=== PATIENT | female | born 1945 | race Caucasian/White ===

== ENCOUNTER → 2023-10-10 08:16 | Outpatient (REF) | payer MEDICARE, SELFPAY ==
[2023-10-10 09:33] LABS: ALT (SGPT) 28 U/L (0-35); AST (SGOT) 29 U/L (14-36); Albumin 3.9 g/dl (3.5-5.0); Alkaline Phosphatase 63 U/L (38-126); Blood Urea Nitrogen 18 mg/dl (7-17); Calcium 9.1 mg/dl (8.4-10.2); Carbon Dioxide 30 mmol/L (22-30); Chloride 107 mmol/L (98-107); Glucose 87 mg/dl (70-99); Potassium 4.1 mmol/L (3.5-5.1); Sodium 139 mmol/L (135-145); Total Bilirubin 1.5 mg/dl (0.2-1.3); Total Protein 6.4 g/dl (6.3-8.2); eGFR > 60.00
== END ==
LOC: REG 08:16
PROVIDERS: ATTENDING PHYSICIAN Internal Medicine Rheumatology; FAMILY PHYSICIAN Family Medicine
DX: M81.0 Age-related osteoporosis without current pathological fracture (principal)
CPT/HCPCS: 36415; 80053

== ENCOUNTER → 2023-11-01 08:57 | Outpatient (REF) | payer MEDICARE, SELFPAY ==
[2023-11-01 10:45] LABS: ALT (SGPT) 28 U/L (0-35); AST (SGOT) 28 U/L (14-36); Alkaline Phosphatase 59 U/L (38-126); Blood Urea Nitrogen 20 mg/dl (7-17); Calcium 9.7 mg/dl (8.4-10.2); Carbon Dioxide 30 mmol/L (22-30); Chloride 106 mmol/L (98-107); Glucose 105 mg/dl (70-99); Potassium 3.9 mmol/L (3.5-5.1); Sodium 139 mmol/L (135-145); Total Bilirubin 1.2 mg/dl (0.2-1.3); Total Protein 6.7 g/dl (6.3-8.2); eGFR > 60.00
[2023-11-01 12:40] LABS: NT-proBNP 276 pg/ml
== END ==
LOC: REG 08:57
PROVIDERS: ATTENDING PHYSICIAN Internal Medicine Cardiovascular Disease; FAMILY PHYSICIAN Family Medicine
DX: I10 Essential (primary) hypertension (principal); I50.32 Chronic diastolic (congestive) heart failure
CPT/HCPCS: 36415; 80053; 83880

== ENCOUNTER 2024-01-13 20:44 | Inpatient (IN) | payer MEDICARE, SELFPAY ==
[2024-01-13] VITALS (9 sets, daily range): BP systolic 102–138; BP diastolic 54–88; BMI 32.0; BMI 29.2
[2024-01-13 17:37] LABS: % Basophils 0.1 % (0-2); % Immature Granulocytes 5.5 % (0-0.5); % Monocytes 9.7 % (1.7-9.3); % Neutrophils 79.7 % (42.2-75.2); Absolute Immature Granulocytes 1.1 10^3/uL (0-0.05); Absolute Neutrophils 16.3 10^3/uL (1.4-6.5); Hematocrit 23.3 % (37.0-47.0); Hemoglobin 7.6 g/dL (12.0-16.0); Mean Corp Hgb Conc. 32.6 g/dL (33.0-37.0); Mean Corpuscular Hgb 30.5 pg (27.0-31.0); Mean Corpuscular Volume 93.6 fL (81.0-99.0); Mean Platelet Volume 10.4 fL (7.4-10.4); Nucleated Red Blood Cells % 0.8 %; Platelet Count 308 10^3/uL (130-400); Red Blood Cell Count 2.49 10^6/uL (4.20-5.40); Red Cell Dist. Width 16.2 % (11.5-14.5); White Blood Cell Count 20.5 10^3/uL (4.8-10.8)
[2024-01-13 17:53] LABS: ALT (SGPT) 28 U/L (0-35); AST (SGOT) 25 U/L (14-36); Albumin 2.9 g/dl (3.5-5.0); Alkaline Phosphatase 53 U/L (38-126); Blood Urea Nitrogen 33 mg/dl (7-17); Calcium 8.8 mg/dl (8.4-10.2); Carbon Dioxide 24 mmol/L (22-30); Chloride 105 mmol/L (98-107); Glucose 146 mg/dl (70-99); Potassium 4.5 mmol/L (3.5-5.1); Sodium 135 mmol/L (135-145); Total Bilirubin 1.8 mg/dl (0.2-1.3); Total Protein 5.3 g/dl (6.3-8.2); eGFR 57.66
--- NOTE | 2024-01-13 18:27 | ED.GENMED ---
History of Present Illness
General
Chief Complaint: Abnormal Lab Value
Source: patient
Exam Limitations: none
Time Seen by Provider: 01/13/24 17:53
Travel History
Have you had any contact with someone who has COVID-19?: No
Do you have any symptoms of coronavirus? Fever > 100 degrees, chills, cough, shortness of breath, sore throat, loss of taste or smell, muscle aches, or headache?: No
History of Present Illness
History of Present Illness:
This is a 78 year old female that comes in with c/o abnormal labs. States that she is at [facility] and the nurse told her her Hgb is low. State that she fell on Saturday after . State that she was a trauma at [place] and was then
transferred to the eye institute [facility] for eye surgery. 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 States that she was discharged back to [facility] 2 days ago. States that today she is feeling good except for the
hematoma in the left thigh. Denies any fever, chills, chest pain, SOB, abd pain, nausea, vomiting, diarrhea, headache, dizziness, urinary burning.
Past History
Past History
ED Past Medical History: CAD, Cancer (Skin CA), GERD, HTN, Hypercholesterolemia and Other (Multiple fractures of the face, Chronic Bronchitis, PNA, Sleep apnea, DVT, factor VIII clotting disorder)
ED Past Surgical History: Orthopedic (Right Total knee replacement), Tonsilectomy and Other (IVC filter, gastric bypass, lumpectomy, skin surgery)
Social History
Tobacco: Non-smoker
Alcohol: None (Maybe once a year)
Drug: None
Personal:
Living: assisted living ([facility])
Family History
Family History: Hypertension
Review of Systems
Review of Systems
All Other Systems: ROS reviewed and negative except as documented in HPI and ROS
Constitutional: Reports no symptoms; Denies fever or chills
EENT: Reports no symptoms
Respiratory: Reports no symptoms; Denies cough or trouble breathing
Cardiac: Reports no symptoms; Denies chest pain
ABD/GI: Reports no symptoms; Denies abdominal pain, nausea, vomiting or diarrhea
: Reports no symptoms; Denies dysuria, frequency or urgency
Musculoskeletal: Reports other (Pain left thigh due to Hematoma)
Skin: Reports no symptoms
Neurological: Reports no symptoms; Denies dizzy or headache
Psychiatric: Reports no symptoms
Phy Exam
General Physical Exam
General Presentation: no apparent distress
General age: appears stated age
General Skin: warm and dry
General Habitus: elderly
General Mental: alert
General Hydration: appears well hydrated
ENT Exam
ENT Exam: TM's normal, pharynx normal and neck supple
Eye Exam
Eye Exam: other (Patch maintained over left eye. )
Cardiovascular Exam
Cardiovascular Exam: regular rate/rhythm and normal peripheral pulses
Pulmonary Exam
Pulmonary Exam: lungs clear, no respiratory distress, no rales, chest non tender, no crackles, no rhonchi, no wheezing and no cough
Gastrointestinal Exam
Gastrointestinal Exam: normal bowel sounds, non tender, soft, no organomegaly, no pulsatile mass, non distended and other (Rectal exam stool brown hem negative. )
Musculoskeletal Exam
Musculoskeletal Exam: edema (left leg and slightly right lower nonpitting) and other (contusion of the left side of the face, and left thigh with large hematoma on the left thigh Contusion down to left posterior knee, Limited ROM of the left leg)
Skin Exam
Skin Exam: normal color, warm/dry, no petechia and other (contusion left sided of face and left thigh)
Psychiatric Exam
Psychiatric Exam: normal mood/affect
Course
Orders/Labs/Results
Orders:
Orders
01/13/24 Breakfast
Cholesterol Lowering
At Your Request: Full Participation
Cholesterol Lowering: Sodium, 2 Gram
01/13/24 17:22
CBC/With Diff [Complete Blood Count/With Diff] Urgent
Comprehensive Metabolic Panel Urgent
01/13/24 18:26
* Blood Bank Products Urgent
Blood Bank Products: *Packed RBC Leuko(PRBC's)
Quantity: 2
Transfuse Today: Yes
Reason: Anemia
Urinalysis Reflex To Culture Urgent
01/13/24 18:27
IV Insert/Care/Rem.- Treatment PRN
01/13/24 18:44
Type+Screen Urgent
01/13/24 20:01
Admit/Transfer Patient As Directed
Co-Sign Provider:
Level of Care: Inpatient admission
Assign to:: Telemetry
Physician / Group: ofelia ibarra
Diagnosis: acute anemia
Reason for Telemetry: Other
Other Reason for Telemetry: anemia
Date to Stop Telemetry: 01/15/24
Time to Stop Telemetry: 11:00
Reason for Hospitalization: acute anemia
Expected length of stay greater than two midnights?: Yes
ELOS- Estimated Length of Stay in days: 3
I certify the patient meets the requirements for IP care: Yes
PT/INR [Prothrombin Time] Stat
01/13/24 20:03
Code Status As Directed
Resuscitation Status: Full Code
01/13/24 20:46
Acetaminophen [Tylenol] 650 mg PO Q4HPRN PRN
Bisacodyl [Dulcolax] 10 mg RECTAL [id number] PRN
Docusate W/Senna [Senokot-S] 1 tablet PO BIDPRN PRN
Polyethylene Glycol Powder [Miralax] 17 grams PO DAILYPRN PRN
01/13/24 20:46
Activity As Directed
Activity Level: As Tolerated
Vital Signs As Directed
Frequency: Per unit guidelines
01/13/24 21:00
Dexamethasone [Decadron] 2 mg PO BID
Enoxaparin Sodium [Lovenox] 60 mg SC Q12H
Prednisolone Acetate [Pred Forte 1% Eye Drops] See Dose Instructions BOTH EYES 6/D
01/13/24 22:00
Chlorhexidine Oral Rinse 0.12% [Peridex 0.12% Oral Rinse] 15 ml PO Q12H
Rosuvastatin Calcium [Crestor] 5 mg PO HS
Sildenafil Citrate [Revatio] 20 mg PO Q12H
Warfarin [Coumadin] 2 mg PO HS
Warfarin [Coumadin] 7.5 mg PO HS
moxifloxacin See Dose Instructions LEFT EYE QID
01/14/24 06:00
Basic Metabolic Panel IN AM
Cardiovascular Evaluation IN AM
Complete Blood Count/No Diff IN AM
Prothrombin Time IN AM
01/14/24 08:00
Atropine Sulfate [Atropine Sulfate 1% Drops] See Dose Instructions LEFT EYE BID
Famotidine [Pepcid] 20 mg PO DAILY
Lidocaine [Lidocaine 4% Patch] 1 patch TOPICAL DAILY
Pantoprazole [Protonix] 20 mg PO DAILY
Polyethylene Glycol Powder [Miralax] 17 grams PO DAILY
Sennosides [Senokot] 17.2 mg PO BID
Timolol Maleate/Dorzolam HCl [Cosopt Eye Drops] See Dose Instructions LEFT EYE BID
01/15/24 06:00
Basic Metabolic Panel IN AM
Complete Blood Count/No Diff IN AM
Prothrombin Time IN AM
01/15/24 11:00
DC Protocol for Telemetry ONCE
01/16/24 06:00
Basic Metabolic Panel IN AM
Complete Blood Count/No Diff IN AM
Prothrombin Time IN AM
01/17/24 06:00
Basic Metabolic Panel IN AM
Complete Blood Count/No Diff IN AM
Prothrombin Time IN AM
01/18/24 06:00
Basic Metabolic Panel IN AM
Complete Blood Count/No Diff IN AM
Prothrombin Time IN AM
Abnormal Lab Results
01/13/24 01/13/24 01/13/24
17:22 18:44 20:01
WBC 20.5 H 10^3/uL
(4.8-10.8)
RBC 2.49 L 10^6/uL
(4.20-5.40)
Hgb 7.6 L g/dL
(12.0-16.0)
Hct 23.3 L %
(37.0-47.0)
MCHC 32.6 L g/dL
(33.0-37.0)
RDW 16.2 H %
(11.5-14.5)
Abs Immat Gran (auto) 1.1 H 10^3/uL
(0-0.05)
Absolute Neuts (auto) 16.3 H 10^3/uL
(1.4-6.5)
Absolute Lymphs (auto) 1.0 L 10^3/uL
(1.2-3.4)
Absolute Monos (auto) 2.0 H 10^3/uL
(0.1-0.6)
Immature Gran % 5.5 H %
(0-0.5)
Neutrophils % 79.7 H %
(42.2-75.2)
Lymphocytes % 5.0 L %
(20.5-51.1)
Monocytes % 9.7 H %
(1.7-9.3)
PT 18.1 H Sec
(11.4-14.6)
BUN 33 H mg/dl
(7-17)
Glucose 146 H mg/dl
(70-99)
Total Bilirubin 1.8 H mg/dl
(0.2-1.3)
Total Protein 5.3 L g/dl
(6.3-8.2)
Albumin 2.9 L g/dl
(3.5-5.0)
Crossmatch IS Only See Detail
01/13/24 17:22
01/13/24 17:22
Leukocytosis, H/H low. Anemia, Dehydration. Glucose nonfasting. Total saniya elevation. total protein low. Albumin low.
Vital Signs
Initial and Last Documented VS:
Initial Vital Signs
Temp
97.2 F
01/13/24 17:06
Last Documented Vital Signs
Temp Pulse Resp BP Pulse Ox
97.9 F 61 18 128/57 99
01/14/24 00:34 01/14/24 00:34 01/14/24 00:34 01/14/24 00:34 01/13/24 22:31
MDM/Problems Addressed
Differential Diagnosis Includes:
Anemia. bleeding into hematoma
MDM/Problems Addressed:
This is a 78 year old female that comes in with c/o abnormal labs. States that she was a trauma the Saturday after . Patient has a large hematoma to the left thigh and today she was told that her Hgb is low.
will check labs, Urine and give 2 units of PRBC's and admit.
Hospitalist notified.
Chronic conditions affecting care:
factor VIII clotting disorder
Acute Exacerbation and/or Progression of Chronic Illness:
factor VIII clotting disorder
*Pulse Oximetry
Patient hypoxic: no
*EKG
Interpreted by ED Provider?: NA
Rate: EKG- N/A
*Emergency Veterinary Technician Interpretation
Rate: normal
Heart Rate: 65
Rhythm: sinus
*Critical Care Note
Total Time (30-74mins, 75-104mins- exclusive of procedures): Not Applicable
ED Attending Note
-
Portions of this chart may have been created with voice recognition software.� Occasional wrong word or��sound alike� substitutions may have occurred due to the inherent limitations of voice recognition software.
Discharge Plan
Departure
Patient Disposition: Admit
Date of Disposition: 01/13/24
Time of Disposition: 19:23
Admit to: Telemetry
Presentation/result/management discussed w/ accepting MD/DO: Hospitalist
Patient with high blood pressure during this ER visit?: No
Condition: Good
Covid-19: Not Applicable
Discharge Problem:
Abnormal laboratory test result, Hemoglobin low
Interventions
Interventions:
*Risk Screen - Suicide Last Done: 01/13/24 17:51
*General Assessment Last Done: 01/13/24 17:51
*Neglect/Abuse Screening Last Done: 01/13/24 17:51
ED- Fall Risk Assessment Last Done: 01/13/24 17:51
*ED COVID-19 Vaccine History Last Done: 01/13/24 17:51
*Nursing Disposition Last Done: 01/13/24 20:40
Discharge Date and Time
Discharge Date/Time: 01/13/24 20:40
--- NOTE | 2024-01-13 19:33 | HPS.HSE ---
Addendum entered and electronically signed by ZAHRA Sanchez 01/13/24 20:32:
left thigh hematoma
-ctm
Addendum entered and electronically signed by Levar Molina MD 01/13/24 20:31:
This note serves as an addendum to the H&P by track liner operator KACY Andree VOGT
8F HX Factor VIII clotting disorder, s/p fall on 12/31 complicated with Lt orbital facial Fx, Lt thigh large hematoma.
She was [facility] for low Hgb 6.7 for evaluation. Baseline Hgb is 13 (01/18/23).
S/P orbit reconstructive surgery ay [facility] on 01/10/24. Received 1 PRBC at [facility] for anemia.
Denied hematemesis and melena. NEG HoB stool.
No prior HX ACdz. Nl renal function.
HX Warfarin for Factor VIII clotting disorder prior to facial trauma.
Currently on bridging LMWH.
Known to [facility] war[facility]in [facility]. last dose of Lovenox was this AM.
Associate steroid induced leucocytosis
- Hemodynamically stable
- ER ordered 2 PRBCs - f/u post Tx Hgb
- cont Lovenox bridge and warfarin:- daily INR an Hgb
- cont Decadron PO - trend WCC
- agree with [facility] consult per family request
Original Note:
Family Physician
-
Family Physician: Jaren Marcum
Chief Complaint
-
low blood count
History of Present Illness
78 year old female with past medical history for coronary artery disease, skin cancer, GERD, hypertension, hyperlipidemia DVT, factor VIII clotting presented to us with low hemoglobin. State that she fell on Saturday after . State that
she was a trauma at [place] and was then transferred to the eye institute [facility] for eye surgery. Patient fractured orbital part of her left eye as well as some facial fractures she was also noted to have left Thigh lower extremities
hematoma. Patient underwent repair of all with as well as placed plates and screws for facial fractures. She has stable left thigh hematoma since then. Patient had left lower extremities ultrasound and x-ray with no acute findings at [facility].
she denied VELASCO,dizzy or syncopal episode. denied fever, chills, chest pain, sob. denied abdominal pain,n,v,d. denied dysuria or hematuria. Patient was once transfused with a unit of blood at [facility] for anemia.
On arrival noted to have a hemoglobin of 7.6. Transfusing with 2 units of blood. Admitting for further management
Medical History
Past Medical History
Past Medical History: Reports Other
Additional Past Medical History:
Hyperlipidemia
Pulmonary hypertension
factor VIII deficiency
Frequent PVCs
Hypertension
Diastolic CHF
Degenerative disc disease
Varicose veins of bilateral lower extremities
Chronic laryngitis
DVT/PE
Asthma
GERD
Hiatal hernia
Orthostatic hypotension
Past Surgical History: Reports Other
Additional Past Surgical History:
Right knee replacement
IVC filter
Tonsillectomy
Vertical sleeve gastrectomy
Chin melanoma excision
Dental implant
Social History
Tobacco: Non-smoker
Alcohol: None
Drug: None
Living: Assisted Living
Family History
Family History: Not pertinent
Allergies / Home Medications
Allergies reflects when Allergies were last updated in [facility].
Home Medications with original date entered in [facility]
Allergy/Medication List:
Allergies
Allergy/AdvReac Type Severity Reaction Status Date / Time
adhesive Allergy blistering Verified 01/13/24 17:06
of skin
nickel Allergy welts as a Verified 01/13/24 17:06
child when
wearing
jewelry
with nickel
sulfite Allergy wheezing,co Verified 01/13/24 17:06
ugh
Home Medications
Prolia 1.7 ml SC .ANNUAL 01/13/24
acetaminophen 325 mg tablet (Tylenol) 650 mg PO Q4H PRN mild pain/fever>100 01/13/24
atropine 1 % eye drops 1 drp LEFT EYE BID 01/13/24
bisacodyl 10 mg rectal suppository (Dulcolax (bisacodyl)) 10 mg CO DAILY PRN if MOM ineffective on day 5 01/13/24
chlorhexidine gluconate 0.12 % mouthwash (Peridex) 15 ml PO Q12H 01/13/24
cholecalciferol (vitamin D3) 25 mcg (1,000 unit) tablet 25 mcg PO DAILY 01/13/24
cyanocobalamin (vitamin B-12) 500 mcg tablet 500 mcg PO DAILY 01/13/24
dexamethasone 2 mg tablet 2 mg PO .TAPER 01/13/24
dorzolamide-timolol (PF) 2 %-0.5 % eye drops in a dropperette (Cosopt (PF)) 1 drp LEFT EYE BID 01/13/24
enoxaparin 60 mg/0.6 mL subcutaneous syringe (Lovenox) 60 mg SC Q12H 01/13/24
famotidine 20 mg tablet (Pepcid) 20 mg PO DAILY 01/13/24
lansoprazole 15 mg capsule,delayed release (Prevacid 24Hr) 15 mg PO DAILY 01/13/24
lidocaine 4 % topical patch 1 patch topical DAILY lower back 01/13/24
magnesium chloride 250 mg PO DAILY 01/13/24
magnesium hydroxide 400 mg/5 mL oral suspension (Milk of Magnesia) 30 ml PO DAILY PRN if no BM on day 4 01/13/24
moxifloxacin 0.5 % eye drops 1 drp LEFT EYE QID 01/13/24
polyethylene glycol 3350 17 gram oral powder packet (Miralax) 17 g PO DAILY 01/13/24
prednisolone acetate 1 % eye drops,suspension (Pred Forte) 1 drp BOTH EYES 6XD 01/13/24
rosuvastatin 5 mg tablet 5 mg PO HS 01/13/24
sennosides 8.6 mg tablet (Senna Lax) 17.2 mg PO BID 01/13/24
sildenafil (pulm.hypertension) 20 mg tablet 20 mg PO Q12H 01/13/24
sodium phosphates 19 gram-7 gram/118 mL enema (Fleet Enema) 118 ml CO DAILYPRN PRN if dulcolax supp ineffective on day 6 01/13/24
warfarin 2 mg tablet 2 mg PO HS 01/13/24
warfarin 7.5 mg tablet 7.5 mg PO HS 01/13/24
Review of Systems
-
Constitutional: Reports No Symptoms
EENT: Reports Other (Left eye covered and bruises noted on left side of face)
Respiratory: Reports No Symptoms
Cardiac: Reports No Symptoms
Abdomen/GI: Reports No Symptoms
: Reports No Symptoms
Musculoskeletal: Reports No Symptoms
Skin: Reports Other (Left thigh hematoma)
Neurological: Reports No Symptoms
Endocrine: Reports No Symptoms
Hematologic/Lymphatic: Reports No Symptoms
Psych: Reports No Symptoms
Physical Exam
Vital Signs
Vital Signs
Temp Pulse Resp BP Pulse Ox
98.2 F 69 22 113/55 98
01/13/24 19:19 01/13/24 19:15 01/13/24 19:15 01/13/24 19:00 01/13/24 19:19
Physical Exam
General: Well Developed, Well Nourished and No Apparent Distress
HEENT: NormoCephalic, Moist mucous membranes, Atraumatic and Other (Left facial bruises, left left COVered)
Respiratory: Clear
Cardiac: S1/S2 and Regular Rhythm; No Murmur or Rub
GI: Soft, Non Tender, Non Distended and Normal Bowel Sounds; No Organomegaly
Rectal: Deferred by Provider
Musculoskeletal: No Clubbing, No Cyanosis and No Edema
Skin: Rash and Other (Left thigh hematoma)
Neuro: AO x 3 and Nonfocal/grossly intact
Psych: Calm
Laboratory Results
-
06/10/24 17:22
01/13/24 17:22
Laboratory Results
Total Bilirubin 1.8 mg/dl (0.2-1.3) H 01/13/24 17:22
AST 25 U/L (14-36) 01/13/24 17:22
ALT 28 U/L (0-35) 01/13/24 17:22
Alkaline Phosphatase 53 U/L (38-126) 01/13/24 17:22
Data Reviewed
-
Lab Data: Labs Reviewed by me
Impression/Plan
-
# Acute anemia likely from left thigh hematoma
-Stool negative in ER
-Hemoglobin 7.6
-Transfusing with 2 units of blood
-Monitor hemoglobin in the morning
# Factor VIII clotting disorder
-Warfarin managed by warfarin clinic by Dr. Castillo
-continue on Lovenox bridging to Coumadin
# elevated wbc likely from steroids
-afebrile
-obtain UA
-denied any URI
-ctm
# Recent fall with left eye orbital fracture/facial fracture
-Atropine drops continued
-Peridex continued
-Dexamethasone
-Lidocaine patch
-Moxifloxacin eyedrops continued
-Prednisolone continued
# Hyperlipidemia
-Crestor continued
#Pulmonary hypertension
-Sildenafil continued
# GERD
-famotidine, Prevacid continued
# DVT prophylaxis
# CODE STATUS
-Full code
[2024-01-13 20:16] LABS: INR 1.52; PT 18.1 Sec (11.4-14.6)
--- NOTE | 2024-01-13 22:00 | PTCARENOTE ---
pt is aaox3, decrease vision in left eye d/t orbit reconstructive surgery ay [facility] on 01/10/24.. left eye swollen w/ eye protective cover in place. pt has large leg/thigh hematoma. pt family to bring in medicated eye drop. pt is oriented to room w/
call treviño in reach.
[2024-01-13] MEDS: CRESTOR 5 MG PO (22:03)
[2024-01-13] MEDS: DECADRON 2 MG PO (22:04)
[2024-01-13] MEDS: PRED FORTE 1% EYE DROPS 1 DROP BOTH EYES (22:05)
[2024-01-13] MEDS: COUMADIN 2 MG PO (22:05)
[2024-01-13] MEDS: LOVENOX 40 MG SC (22:06)
[2024-01-13] MEDS: COUMADIN 7.5 MG PO (22:06)
[2024-01-13] MEDS: REVATIO 20 MG PO (22:07)
[2024-01-13] MEDS: TYLENOL 650 MG PO (22:07)
[2024-01-13] MEDS: PERIDEX 0.12% ORAL RINSE 15 ML PO (22:33)
[2024-01-14] VITALS (7 sets, daily range): BP systolic 123–144; BP diastolic 55–74; PULSE 65
--- NOTE | 2024-01-14 03:00 | PTCARENOTE ---
2units of PRBC transfused. VSS. no reaction noted.
[2024-01-14] MEDS: PRED FORTE 1% EYE DROPS 1 DROP BOTH EYES ×4 (05:53→14:13)
[2024-01-14 06:26] LABS: INR 1.55; PT 18.4 Sec (11.4-14.6)
[2024-01-14 06:32] LABS: Urine Albumin Negative (Neg - Trace); Urine Bilirubin Negative (Negative); Urine Character Clear (Clear); Urine Color Yellow; Urine Glucose Negative (Negative); Urine Ketone Negative (Negative); Urine Leukocyte Negative (Negative); Urine Nitrite Negative (Negative); Urine Occult Blood Negative (Negative); Urine Specific Gravity 1.015 (<1.030); Urine Urobilinogen 1+ (Neg - 1+)
[2024-01-14 06:36] LABS: Hematocrit 28.6 % (37.0-47.0); Mean Corp Hgb Conc. 32.9 g/dL (33.0-37.0); Mean Corpuscular Hgb 28.9 pg (27.0-31.0); Mean Platelet Volume 10.3 fL (7.4-10.4); Platelet Count 207 10^3/uL (130-400); Red Blood Cell Count 3.25 10^6/uL (4.20-5.40); Red Cell Dist. Width 17.6 % (11.5-14.5)
[2024-01-14 06:45] LABS: Hemoglobin 9.4 g/dL (12.0-16.0)
[2024-01-14 06:52] LABS: Blood Urea Nitrogen 32 mg/dl (7-17); Calcium 8.3 mg/dl (8.4-10.2); Carbon Dioxide 23 mmol/L (22-30); Chloride 108 mmol/L (98-107); Estimated Creatinine Clearance 64 ml/min; Glucose 114 mg/dl (70-99); HDL Cholesterol 60 mg/dl; LDL Cholesterol, Calculated 115 mg/dl; Potassium 4.6 mmol/L (3.5-5.1); Sodium 135 mmol/L (135-145); Total Cholesterol 194 mg/dl (50-199); Triglyceride 96 mg/dl (10-149); Very Low Density Lipoprotein 19 mg/dl (0-30); eGFR > 60.00
--- NOTE | 2024-01-14 08:44 | CON.CAR ---
Addendum entered and electronically signed by Valdemar Cabello MD 01/14/24 13:50:
I saw and examined the patient.
The PLASTICS FABRICATION SUPERVISOR or PA's note was reviewed and I agree with the note.
Comment: General: Well developed, well nourished in NAD.
Neck: Supple, no JVD, HJR, carotids +2 B/L, no bruits bilaterally.
Heart: Non displaced PMI, RRR, no murmurs, No S3, S4, no rubs.
Lungs: Clear to auscultation bilaterally, no wheeze, rhonchi, rubs bilaterally,
normal expiratory phase.
Extremities: Severe left thigh hematoma
Neuro: Grossly nonfocal, awake, alert and oriented x3.
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 She suffered a mechanical fall on 01/01/2024 resulting in head and facial trauma and went to
[place]. She was diagnosed left orbital fracture and ultimately transferred to [facility] with surgical repair with plates and screws. She is also noted to have a left thigh hematoma. She was treated with Lovenox bridge with 3
anticoagulation with Coumadin. She was transferred to [facility] from [facility] due to anemia with hemoglobin of 6.7. Patient received 2 units of packed red blood cells. Cardiology is asked to manage anticoagulation.
Presumably anemia is due to left thigh hematoma but unclear if there could be another source of anemia. She remains on Lovenox and Coumadin. Continue to follow for more signs of bleeding/anemia
Original Note:
Consultation
Consultation Request
Date/Time Consultation Requested: 01/13/2024
Date/Time Consultation Performed: 01/14/2024
Requesting Provider: Dr. Molina
Performing Provider: Ev Daly PA-C for Dr. Valdemar Cabello
Reason for Consultation: Assistance in managing anticoagulation
Medical History
-
History of Present Illness:
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
anticoagulation with Coumadin who suffered a mechanical fall on 01/01/2024 down steps resulting in head and facial trauma and evaluated at [facility]. She was diagnosed with left orbital fracture and ultimately was transferred to [facility] for surgical repair with plates and screws. She was also noted to have left thigh hematoma. While in [facility] she was restarted on Coumadin however had subtherapeutic INR's and therefore was receiving Lovenox. Patient was
referred from [facility] secondary to anemia with hemoglobin of 6.7 prompting them to send her to the emergency department for evaluation. In emergency department hemoglobin noted to be 7.6. Patient received 2 units of packed RBCs. Cardiology
being asked to see patient for management of anticoagulation.
At time of this evaluation patient just finished ambulating around the [place] with physical therapy. Did well with utilization of walker. She denies chest pain, shortness of breath, dizziness or lightheadedness.
Past medical history:
Hyperlipidemia
Pulmonary hypertension
DVT/PE s/p IVC filter
Factor VIII abnormality (elevation)
Chronic anticoagulation with Coumadin
Frequent PVCs
Hypertension
Chronic heart failure with preserved ejection fraction
Degenerative disc disease
Varicose veins of bilateral lower extremities
Chronic laryngitis
Asthma
GERD
Hiatal hernia
Hyperparathyroidism
Orthostatic hypotension
Right knee replacement
Tonsillectomy
Vertical sleeve gastrectomy
Chin melanoma excision
Dental implant
Recent left orbital fracture with surgical repair and extraction 01/10/2024
Past Medical History
Past Medical History: Other (See HPI)
Past Surgical History: Gynecological (Tubal ligation, BSO), Orthopedic (Right TKA 2014), Tonsilectomy and Other (Vertical sleeve gastrectomy, dental extractions with implant, melanoma skin excision, IVC filter, left orbital fracture with surgical
repair and extraction 01/10/2024)
Social History
Tobacco: Non-Smoker
Alcohol: Occasional
Drug: None
Personal:
Living: Assisted Living ([place] [facility])
Family History
Family History: Early CAD (Father) and Other (Mother had stroke, aortic aneurysm)
Allergies / Home Medications
Allergy/AdvReac Type Severity Reaction Status Date / Time
adhesive Allergy blistering Verified 01/13/24 17:06
of skin
nickel Allergy welts as a Verified 01/13/24 17:06
child when
wearing
jewelry
with nickel
sulfite Allergy wheezing,co Verified 01/13/24 17:06
ugh
�Medication �Instructions �Recorded �Confirmed �Type
Prolia 1.7 ml SC .ANNUAL 01/13/24 01/13/24 History
acetaminophen 325 mg tablet 650 mg PO Q4H PRN mild 01/13/24 01/13/24 History
(Tylenol) pain/fever>100
atropine 1 % eye drops 1 drp LEFT EYE BID 01/13/24 01/13/24 History
bisacodyl 10 mg rectal suppository 10 mg KS DAILY PRN if MOM 01/13/24 01/13/24 History
(Dulcolax (bisacodyl)) ineffective on day 5
chlorhexidine gluconate 0.12 % 15 ml PO Q12H 01/13/24 01/13/24 History
mouthwash (Peridex)
cholecalciferol (vitamin D3) 25 25 mcg PO DAILY 01/13/24 01/13/24 History
mcg (1,000 unit) tablet
cyanocobalamin (vitamin B-12) 500 500 mcg PO DAILY 01/13/24 01/13/24 History
mcg tablet
dexamethasone 2 mg tablet 2 mg PO .TAPER 01/13/24 01/13/24 History
dorzolamide-timolol (PF) 2 %-0.5 % 1 drp LEFT EYE BID 01/13/24 01/13/24 History
eye drops in a dropperette (Cosopt
(PF))
enoxaparin 60 mg/0.6 mL 60 mg SC Q12H 01/13/24 01/13/24 History
subcutaneous syringe (Lovenox)
famotidine 20 mg tablet (Pepcid) 20 mg PO DAILY 01/13/24 01/13/24 History
lansoprazole 15 mg capsule,delayed 15 mg PO DAILY 01/13/24 01/13/24 History
release (Prevacid 24Hr)
lidocaine 4 % topical patch 1 patch topical DAILY lower back 01/13/24 01/13/24 History
magnesium chloride 250 mg PO DAILY 01/13/24 01/13/24 History
magnesium hydroxide 400 mg/5 mL 30 ml PO DAILY PRN if no BM on day 01/13/24 01/13/24 History
oral suspension (Milk of Magnesia) 4
moxifloxacin 0.5 % eye drops 1 drp LEFT EYE QID 01/13/24 01/13/24 History
polyethylene glycol 3350 17 gram 17 g PO DAILY 01/13/24 01/13/24 History
oral powder packet (Miralax)
prednisolone acetate 1 % eye 1 drp BOTH EYES 6XD 01/13/24 01/13/24 History
drops,suspension (Pred Forte)
rosuvastatin 5 mg tablet 5 mg PO HS 01/13/24 01/13/24 History
sennosides 8.6 mg tablet (Senna 17.2 mg PO BID 01/13/24 01/13/24 History
Lax)
sildenafil (pulm.hypertension) 20 20 mg PO Q12H 01/13/24 01/13/24 History
mg tablet
sodium phosphates 19 gram-7 118 ml KS DAILYPRN PRN if dulcolax 01/13/24 01/13/24 History
gram/118 mL enema (Fleet Enema) supp ineffective on day 6
warfarin 2 mg tablet 2 mg PO HS 01/13/24 01/13/24 History
warfarin 7.5 mg tablet 7.5 mg PO HS 01/13/24 01/13/24 History
Review of Systems
-
History Source: Patient
All other systems: Negative unless noted
Physical Exam
Vital Signs
Temp Pulse Resp BP Pulse Ox
97.6 F 63 16 140/62 98
01/14/24 02:37 01/14/24 02:37 01/14/24 02:37 01/14/24 02:37 01/14/24 02:37
GEN: No distress, awake, Ox3
HEENT: supple, ecchymosis and sutures under left eye with patch in place
LUNGS: CTA, no wheezes/rales
CV: Reg, S1/S2,, no murmur, rub or gallop
ABD: soft, BS+, NT/ND
EXT: Very large left thigh hematoma without evidence of vascular compromise, trace edema left lower extremity
NEURO: Gross non-focal
SKIN: No rash, warm, dry, pink
Lab Results
01/14/24 05:22
01/14/24 05:22
Impression / Plan
-
PCP: Jaren Marcum
Wash Helper: Dr. Constanza Castillo
Impression:
Present 01/13/2024 with left thigh hematoma following recent mechanical fall
Acute traumatic anemia
status post 2 units of packed RBCs 01/13/2024
s/p 1 unit RBC at [place]
Leukocytosis
Recent left orbital fracture with surgical repair and extraction 01/10/2024
Hyperlipidemia
Pulmonary hypertension
DVT/PE s/p IVC filter
Factor VIII abnormality/Zayas Syndrome
Chronic anticoagulation with Coumadin
Frequent PVCs
Hypertension
Chronic heart failure with preserved ejection fraction
Degenerative disc disease
Varicose veins of bilateral lower extremities
Chronic laryngitis
Asthma
GERD
Hiatal hernia
Hyperparathyroidism
Orthostatic hypotension
Right knee replacement
Tonsillectomy
Vertical sleeve gastrectomy
Chin melanoma excision
Dental implant
Echocardiogram 07/19/2023: LVEF 65%. Mild left ventricular hypertrophy. Stage II diastolic dysfunction. Normal RV. Mild mitral stenosis with mild to moderate mitral regurgitation. Mild to moderate AI with mild aortic valve stenosis. Moderate
tricuspid regurgitation. Estimated pulmonary artery pressure of 55 mmHg assuming a right atrial pressure of 8 mmH
Plan:
-Presented 01/13/2024 with acute traumatic anemia with expanding left thigh hematoma and surgical repair of left orbit/cheek with plates and screws at [facility] following recent mechanical fall 01/01/2024
-Hemoglobin 7.6 status post 2 units of packed RBCs with improvement of hemoglobin to 9.4
-Heme-negative stool
-Hemodynamically stable
-History of DVT/PE with IVC filter and factor VIII abnormality (elevation) on chronic anticoagulation
-Per review of outpatient flowsheet patient was receiving 9.5 mg of Coumadin daily prior to her traumatic fall.
-Patient had been receiving Lovenox bridge secondary to subtherapeutic INR. INR currently 1.55. Goal INR 2-3. Patient given 9.5 mg of Coumadin on 01/13/2024. Consider giving 10 mg until INR >2.0
-Continue Revatio for pulmonary hypertension
-Appears euvolemic with no evidence of volume overload
-Outpatient dosing of amlodipine 2.5 mg and losartan 25 mg currently on hold secondary to hypotension. BP seems to be improving. Could consider restarting losartan 25 mg daily.
-Continue to monitor significant left thigh hematoma for further expansion or evidence of vascular compromise. Recommend using compression dressing on thigh if patient able to tolerate.
HPI 01/14/24:
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
anticoagulation with Coumadin who suffered a mechanical fall on 01/01/2024 down steps resulting in head and facial trauma and evaluated at [facility]. She was diagnosed with left orbital fracture and ultimately was transferred to [facility] for surgical repair with plates and screws. She was also noted to have left thigh hematoma. While in [facility] she was restarted on Coumadin however had subtherapeutic INR's and therefore was receiving Lovenox. Patient was
referred from [facility] secondary to anemia with hemoglobin of 6.7 prompting them to send her to the emergency department for evaluation. In emergency department hemoglobin noted to be 7.6. Patient received 2 units of packed RBCs. Cardiology
being asked to see patient for management of anticoagulation.
At time of this evaluation patient just finished ambulating around the [place] with physical therapy. Did well with utilization of walker. She denies chest pain, shortness of breath, dizziness or lightheadedness.
Data Reviewed
-
Labs: Labs Reviewed by me, Discussed with Physician, Discussed with Nurse and Discussed with Patient
Old Records: Reviewed
[2024-01-14] MEDS: COSOPT EYE DROPS 1 DROP LEFT EYE (08:56)
[2024-01-14] MEDS: MIRALAX 17 GRAMS PO (08:56)
[2024-01-14] MEDS: PEPCID 20 MG PO (08:56)
[2024-01-14] MEDS: SENOKOT 17.1999999999999993 MG PO (08:56)
[2024-01-14] MEDS: DECADRON 2 MG PO (08:56)
[2024-01-14] MEDS: PROTONIX 20 MG PO (08:56)
[2024-01-14] MEDS: ATROPINE SULFATE 1% DROPS 1 DROP LEFT EYE (08:56)
--- NOTE | 2024-01-14 10:43 | W.PN.HOSP.TC ---
Today's Communication/Plan
-
Adjust doses of Lovenox, warfarin
PT/OT
Discharge planning
Assessment / Plan
Assessment / Plan
Gen-AAOx3, NAD
HEENT-NC, AT, facial bruising, clear oral mm
Neck-supple
CV-reg, no M, +S1/S2
Lungs-clear B/L
Abd-soft, NT, ND
Ext-large left thigh hematoma with swelling
Musculoskeletal-no cyanosis, clubbing
Skin-warm and dry
Neuro-grossly non-focal
Psych-calm, cooperative
Acute blood loss anemia -due to large left thigh hematoma. Hemodynamically stable. Hemoglobin improved after 2 units of blood transfusion, 9.4 today.
Antiphospholipid antibody syndrome -on chronic warfarin therapy. INR subtherapeutic. Continue Lovenox bridging with warfarin. Will increase warfarin dose to 10 mg as INR still subtherapeutic at 9.5 mg. Increase Lovenox to 1 mg/kg every 12 hours,
approximately 80 mg every 12 based on her body weight.
Left eye orbital fracture/facial fracture - due to fall recently. Continue eyedrops.
Hyperlipidemia
Pulmonary pretension
GERD
Full code
Dispo -anticipate discharge back to [facility] for SNF. Case management aware. Updated patient's son Brendon on the phone.
Anticipated Discharge: Today
Subjective/Interval History
-
Date of Service: January 14, 2024
Patient seen and examined. Currently no complaints.
Objective Data
-
Labs:
Laboratory Results
01/14/24
05:22
WBC 16.0 H
Hgb 9.4 L D
Hct 28.6 L
Plt Count 207 D
PT 18.4 H
INR 1.55
Sodium 135
Potassium 4.6
Chloride 108 H
Carbon Dioxide 23
BUN 32 H
Creatinine 0.7
Glucose 114 H
Calcium 8.3 L
Vital Signs:
Vital Signs
Temp Pulse Resp BP Pulse Ox
98.9 F 74 16 124/55 100
01/14/24 07:30 01/14/24 07:30 01/14/24 07:30 01/14/24 07:30 01/14/24 07:30
I&O
01/13/24 01/14/24 01/15/24
06:59 06:59 06:59
Intake Total 980 / 980
Output Total 600 / 600
Balance 380 / 380
Review of Systems
-
History Source: Patient
All other systems: Reviewed and negative
[2024-01-14] MEDS: LOVENOX SC (10:52)
[2024-01-14] MEDS: REVATIO 20 MG PO (11:09)
[2024-01-14] MEDS: LOVENOX 80 MG SC (11:09)
[2024-01-14] MEDS: PERIDEX 0.12% ORAL RINSE 15 ML PO (11:09)
--- NOTE | 2024-01-14 14:06 | W.DS.TRANS ---
DC Summary - Body Team Member
-
Discharge Instructions:
Discharge Diagnosis/Procedures Acute blood loss anemia, left thigh hematoma
Diet Low Cholesterol,Low Fat
Activity As tolerated,With assistance
Driving Restrictions As prior to admission
Bathing Restrictions None
Blood Work Daily INR, weekly hemoglobin
Instructions:
Stand-Alone Forms:
Changes to Home Medications: Yes
Discharge Medications:
DC Medications w/original date entered in [employer]
acetaminophen 325 mg tablet (Tylenol) 650 mg PO Q4H PRN mild pain/fever>100 01/13/24
atropine 1 % eye drops 1 drp LEFT EYE BID Eye Condition 01/13/24
bisacodyl 10 mg rectal suppository (Dulcolax (bisacodyl)) 10 mg ID DAILY PRN if MOM ineffective on day 5 01/13/24
chlorhexidine gluconate 0.12 % mouthwash (Peridex) 15 ml PO Q12H 01/13/24
cholecalciferol (vitamin D3) 25 mcg (1,000 unit) tablet 25 mcg PO DAILY Supplement 01/13/24
cyanocobalamin (vitamin B-12) 500 mcg tablet 500 mcg PO DAILY Supplement 01/13/24
dexamethasone 2 mg tablet 2 mg PO .TAPER Anti-Inflammatory 01/13/24
dorzolamide-timolol (PF) 2 %-0.5 % eye drops in a dropperette (Cosopt (PF)) 1 drp LEFT EYE BID Eye Condition 01/13/24
famotidine 20 mg tablet (Pepcid) 20 mg PO DAILY Gastrointestinal Issue 01/13/24
lansoprazole 15 mg capsule,delayed release (Prevacid 24Hr) 15 mg PO DAILY Gastrointestinal Issue 01/13/24
lidocaine 4 % topical patch 1 patch topical DAILY lower back 01/13/24
magnesium chloride 250 mg PO DAILY 01/13/24
magnesium hydroxide 400 mg/5 mL oral suspension (Milk of Magnesia) 30 ml PO DAILY PRN if no BM on day 4 01/13/24
moxifloxacin 0.5 % eye drops 1 drp LEFT EYE QID Eye Condition 01/13/24
polyethylene glycol 3350 17 gram oral powder packet (Miralax) 17 g PO DAILY Constipation 01/13/24
prednisolone acetate 1 % eye drops,suspension (Pred Forte) 1 drp BOTH EYES 6XD Eye Condition 01/13/24
rosuvastatin 5 mg tablet 5 mg PO HS High Cholesterol 01/13/24
sennosides 8.6 mg tablet (Senna Lax) 17.2 mg PO BID Constipation 01/13/24
sildenafil (pulm.hypertension) 20 mg tablet 20 mg PO Q12H PULM. HYPERTENSION 01/13/24
sodium phosphates 19 gram-7 gram/118 mL enema (Fleet Enema) 118 ml ID DAILYPRN PRN if dulcolax supp ineffective on day 6 01/13/24
enoxaparin 80 mg/0.8 mL subcutaneous syringe 80 mg (0.8 mL) SC Q12@1000,2200 #8 mL 01/14/24
warfarin 10 mg tablet (Jantoven) 10 mg PO QPM #30 tabs 01/14/24
Home Medication Changes
Warfarin dose increased to 10 mg.
Pending Results: No
[2024-01-14] MEDS: NON-FORMULARY ITEM 1 DROP LEFT EYE (14:13)
--- NOTE | 2024-01-14 15:16 | CM ---
Mame is being discharged to [facility] today; her son will provide transportation.
Mame was concerned about not being able to go to the bathroom independently and asked that I check with [facility] about allowing her to be more autonomous.
Per Christiane, Mame will be evaluated when she gets to [facility] and the goal is for her to be able to be as independent as she can be while also being safe.
Mame felt that was reasonable and is willing to go to [facility].
Report: [phone]
== END 2024-01-14 15:41 | DRG 604 ==
LOC: 4 EAST ACU 20:44
PROVIDERS: Clinical Nurse Specialist Family Health; Emergency Medicine; Registered Nurse; ADMITTING PHYSICIAN Internal Medicine; ATTENDING PHYSICIAN Hospitalist; EMERGENCY PHYSICIAN Emergency Medicine; FAMILY PHYSICIAN Family Medicine; OTHER PHYSICIAN Internal Medicine Cardiovascular Disease
DX: S70.12XA Contusion of left thigh, initial encounter (principal); D66 Hereditary factor VIII deficiency; J18.9 Pneumonia, unspecified organism; I50.32 Chronic diastolic (congestive) heart failure; J44.0 Chronic obstructive pulmonary disease with (acute) lower respiratory infection; D68.9 Coagulation defect, unspecified; D62 Acute posthemorrhagic anemia; D68.61 Antiphospholipid syndrome; R79.89 Other specified abnormal findings of blood chemistry; E78.00 Pure hypercholesterolemia, unspecified; S00.83XA Contusion of other part of head, initial encounter; W10.8XXA Fall (on) (from) other stairs and steps, initial encounter; Y93.01 Activity, walking, marching and hiking; Y92.9 Unspecified place or not applicable; G47.30 Sleep apnea, unspecified; I11.0 Hypertensive heart disease with heart failure; T38.0X5A Adverse effect of glucocorticoids and synthetic analogues, initial encounter; I49.3 Ventricular premature depolarization; I83.93 Asymptomatic varicose veins of bilateral lower extremities; J37.0 Chronic laryngitis; K44.9 Diaphragmatic hernia without obstruction or gangrene; I95.1 Orthostatic hypotension; I27.20 Pulmonary hypertension, unspecified; I25.10 Atherosclerotic heart disease of native coronary artery without angina pectoris; K21.9 Gastro-esophageal reflux disease without esophagitis; Z96.651 Presence of right artificial knee joint; Z85.828 Personal history of other malignant neoplasm of skin; Z86.718 Personal history of other venous thrombosis and embolism; Z98.84 Bariatric surgery status; Z87.01 Personal history of pneumonia (recurrent); Z79.01 Long term (current) use of anticoagulants
CPT/HCPCS: 36415; 80048; 80053; 80061; 81003; 85025; 85027; 85610; 86850; 86900; 86901; 86920; 87070; 97162; 97530; 99285; P9016

== ENCOUNTER → 2024-01-15 14:34 | Outpatient (REF) | payer OTHER, MEDICARE, SELFPAY ==
[2024-01-15 15:59] LABS: INR 1.93; PT 22.3 Sec (11.4-14.6)
== END ==
LOC: OLABP 14:34
PROVIDERS: ATTENDING PHYSICIAN Family Medicine
DX: T26 Burn and corrosion confined to eye and adnexa (principal); S02.92XB Unspecified fracture of facial bones, initial encounter for open fracture; M25.552 Pain in left hip; R45.7 State of emotional shock and stress, unspecified
CPT/HCPCS: 36415; 85610

== ENCOUNTER → 2024-01-16 10:45 | Outpatient (REF) | payer OTHER, MEDICARE, SELFPAY ==
[2024-01-16 12:09] LABS: INR 2.34; PT 25.9 Sec (11.4-14.6)
[2024-01-16 12:53] LABS: % Basophils 0.1 % (0-2); % Eosinophils 0.1 % (0-6); % Immature Granulocytes 2.8 % (0-0.5); % Lymphocytes 6.9 % (20.5-51.1); % Monocytes 9.6 % (1.7-9.3); % Neutrophils 80.5 % (42.2-75.2); Absolute Immature Granulocytes 0.4 10^3/uL (0-0.05); Absolute Lymphocytes 0.9 10^3/uL (1.2-3.4); Absolute Monocytes 1.3 10^3/uL (0.1-0.6); Absolute Neutrophils 10.9 10^3/uL (1.4-6.5); Hematocrit 28.4 % (37.0-47.0); Hemoglobin 9.1 g/dL (12.0-16.0); Mean Corpuscular Hgb 29.3 pg (27.0-31.0); Mean Corpuscular Volume 91.3 fL (81.0-99.0); Mean Platelet Volume 10.5 fL (7.4-10.4); Nucleated Red Blood Cells % 0 %; Platelet Count 241 10^3/uL (130-400); Red Blood Cell Count 3.11 10^6/uL (4.20-5.40); Red Cell Dist. Width 19.2 % (11.5-14.5); White Blood Cell Count 13.6 10^3/uL (4.8-10.8)
== END ==
LOC: OLABP 10:45
PROVIDERS: ATTENDING PHYSICIAN Family Medicine
DX: T26 Burn and corrosion confined to eye and adnexa (principal); S02.92XB Unspecified fracture of facial bones, initial encounter for open fracture; M25.552 Pain in left hip; R45.7 State of emotional shock and stress, unspecified; R89.9 Unspecified abnormal finding in specimens from other organs, systems and tissues
CPT/HCPCS: 36415; 85025; 85610

== ENCOUNTER → 2024-01-17 10:37 | Outpatient (REF) | payer OTHER, MEDICARE, SELFPAY ==
[2024-01-17 12:09] LABS: INR 2.41; PT 26.2 Sec (11.4-14.6)
[2024-01-17 12:44] LABS: Blood Urea Nitrogen 21 mg/dl (7-17); Calcium 8.4 mg/dl (8.4-10.2); Carbon Dioxide 26 mmol/L (22-30); Chloride 106 mmol/L (98-107); Glucose 84 mg/dl (70-99); Potassium 4.4 mmol/L (3.5-5.1); Sodium 136 mmol/L (135-145); eGFR > 60.00
== END ==
LOC: OLABP 10:37
PROVIDERS: ATTENDING PHYSICIAN Family Medicine
DX: T26 Burn and corrosion confined to eye and adnexa (principal); S02.92XB Unspecified fracture of facial bones, initial encounter for open fracture; M25.552 Pain in left hip; R45.7 State of emotional shock and stress, unspecified
CPT/HCPCS: 36415; 80048; 85610

== ENCOUNTER → 2024-01-20 11:32 | Outpatient (REF) | payer OTHER, MEDICARE, SELFPAY ==
[2024-01-20 12:07] LABS: INR 3.44; PT 34.6 Sec (11.4-14.6)
[2024-01-20 12:12] LABS: Blood Urea Nitrogen 24 mg/dl (7-17); Calcium 8.6 mg/dl (8.4-10.2); Carbon Dioxide 28 mmol/L (22-30); Chloride 108 mmol/L (98-107); Glucose 84 mg/dl (70-99); Potassium 4.1 mmol/L (3.5-5.1); Sodium 135 mmol/L (135-145); eGFR > 60.00
== END ==
LOC: OLABP 11:32
PROVIDERS: ATTENDING PHYSICIAN Family Medicine
DX: T26 Burn and corrosion confined to eye and adnexa (principal); S02.92XB Unspecified fracture of facial bones, initial encounter for open fracture; M25.552 Pain in left hip; R45.7 State of emotional shock and stress, unspecified
CPT/HCPCS: 36415; 80048; 85610

== ENCOUNTER → 2024-01-22 10:49 | Outpatient (REF) | payer OTHER, MEDICARE, SELFPAY ==
[2024-01-22 12:49] LABS: PT 40.4 Sec (11.4-14.6)
== END ==
LOC: OLABP 10:49
PROVIDERS: ATTENDING PHYSICIAN Family Medicine
DX: T26 Burn and corrosion confined to eye and adnexa (principal); M25.552 Pain in left hip; R45.7 State of emotional shock and stress, unspecified; S02.92XB Unspecified fracture of facial bones, initial encounter for open fracture
CPT/HCPCS: 36415; 85610

== ENCOUNTER → 2024-02-01 08:04 | Outpatient (REF) | payer OTHER, MEDICARE, SELFPAY ==
[2024-02-01 08:50] LABS: INR 4.16; PT 40.3 Sec (11.4-14.6)
[2024-02-01 09:12] LABS: ALT (SGPT) 16 U/L (0-35); AST (SGOT) 24 U/L (14-36); Albumin 3.5 g/dl (3.5-5.0); Alkaline Phosphatase 91 U/L (38-126); Blood Urea Nitrogen 15 mg/dl (7-17); Calcium 9.1 mg/dl (8.4-10.2); Carbon Dioxide 31 mmol/L (22-30); Chloride 106 mmol/L (98-107); Glucose 100 mg/dl (70-99); Potassium 4.2 mmol/L (3.5-5.1); Sodium 140 mmol/L (135-145); Total Protein 6.1 g/dl (6.3-8.2); eGFR > 60.00
== END ==
LOC: REG 08:04
PROVIDERS: ATTENDING PHYSICIAN Internal Medicine Cardiovascular Disease; FAMILY PHYSICIAN Family Medicine
DX: I49.1 Atrial premature depolarization (principal)
CPT/HCPCS: 36415; 80053; 85610

== ENCOUNTER → 2024-02-26 11:09 | Outpatient (REF) | payer MEDICARE, SELFPAY ==
[2024-02-26 13:22] LABS: Sodium 137 mmol/L (135-145)
== END ==
LOC: OLABPV 11:09
PROVIDERS: ATTENDING PHYSICIAN Family Medicine
DX: E87.0 Hyperosmolality and hypernatremia (principal)
CPT/HCPCS: 36415; 84295

== ENCOUNTER → 2024-03-17 08:46 | Outpatient (REF) | payer MEDICARE, SELFPAY ==
[2024-03-17 09:50] LABS: INR 1.61; Ionized Calcium 1.27 mMOL/L (1.15-1.33)
[2024-03-17 10:23] LABS: ALT (SGPT) 20 U/L (0-35); AST (SGOT) 26 U/L (14-36); Albumin 4.1 g/dl (3.5-5.0); Alkaline Phosphatase 78 U/L (38-126); Blood Urea Nitrogen 14 mg/dl (7-17); Calcium 10.1 mg/dl (8.4-10.2); Carbon Dioxide 30 mmol/L (22-30); Chloride 103 mmol/L (98-107); Glucose 95 mg/dl (70-99); HDL Cholesterol 88 mg/dl; LDL Cholesterol, Calculated 122 mg/dl; Sodium 140 mmol/L (135-145); Total Bilirubin 1.3 mg/dl (0.2-1.3); Total Cholesterol 228 mg/dl (50-199); Total Protein 6.5 g/dl (6.3-8.2); Triglyceride 90 mg/dl (10-149); Very Low Density Lipoprotein 18 mg/dl (0-30); eGFR > 60.00
[2024-03-17 10:25] LABS: Vitamin D, 25-OH*** 47.9 ng/mL (30-80)
[2024-03-17 15:11] LABS: Intact PTH 71.3 pg/ml (13.6-85.8)
== END ==
LOC: REG 08:46
PROVIDERS: ATTENDING PHYSICIAN Internal Medicine Endocrinology, Diabetes & Metabolism; FAMILY PHYSICIAN Family Medicine; REFERRING PHYSICIAN Internal Medicine Cardiovascular Disease
DX: E83.52 Hypercalcemia (principal); E55.9 Vitamin D deficiency, unspecified; E34.9 Endocrine disorder, unspecified; M81.0 Age-related osteoporosis without current pathological fracture; D66 Hereditary factor VIII deficiency; Z79.01 Long term (current) use of anticoagulants; E78.00 Pure hypercholesterolemia, unspecified
CPT/HCPCS: 36415; 80053; 80061; 82306; 82330; 83970; 85610

== ENCOUNTER → 2024-03-19 09:11 | Outpatient (REF) | payer MEDICARE, SELFPAY | LOC: RCS 09:11 | PROVIDERS: ATTENDING PHYSICIAN Internal Medicine Cardiovascular Disease; FAMILY PHYSICIAN Family Medicine | DX: I27.0 Primary pulmonary hypertension (principal); I50.32 Chronic diastolic (congestive) heart failure | CPT/HCPCS: 93306 ==

== ENCOUNTER 2024-05-19 07:29 | Inpatient (IN) | payer MEDICARE, SELFPAY ==
[2024-05-04 12:53] VITALS: BMI 30.1
[2024-05-04 15:19] LABS: Hematocrit 40.7 % (37.0-47.0); Hemoglobin 12.6 g/dL (12.0-16.0); Mean Corpuscular Hgb 27.2 pg (27.0-31.0); Mean Corpuscular Volume 87.9 fL (81.0-99.0); Mean Platelet Volume 10.9 fL (7.4-10.4); Platelet Count 194 10^3/uL (130-400); Red Blood Cell Count 4.63 10^6/uL (4.20-5.40); Red Cell Dist. Width 13.9 % (11.5-14.5); White Blood Cell Count 5.1 10^3/uL (4.8-10.8)
[2024-05-04 15:55] LABS: ALT (SGPT) 24 U/L (0-35); AST (SGOT) 24 U/L (14-36); Alkaline Phosphatase 62 U/L (38-126); Blood Urea Nitrogen 13 mg/dl (7-17); Calcium 9.2 mg/dl (8.4-10.2); Carbon Dioxide 28 mmol/L (22-30); Chloride 105 mmol/L (98-107); Estimated Creatinine Clearance 55 ml/min; Glucose 89 mg/dl (70-99); Potassium 4.2 mmol/L (3.5-5.1); Sodium 144 mmol/L (135-145); Total Bilirubin 1.1 mg/dl (0.2-1.3); Total Protein 6.3 g/dl (6.3-8.2); eGFR > 60.00
[2024-05-05 09:06] LABS: Glycohemoglobin (HgbA1c) 5.8 % (4.0-5.6)
[2024-05-13 09:52] VITALS: BMI 30.1
--- NOTE | 2024-05-14 10:34 | PTCARENOTE ---
Hx Factor VIII deficiency; Eva Walton in the office notified and asked whether pt requires Hematology clearance. As per Naveed Ennis PA-C hematology clearance is not required. No further requests at this time.
[2024-05-19] VITALS (16 sets, daily range): BP systolic 133–188; BP diastolic 65–99; BMI 30.1
[2024-05-19] MEDS: NORMOSOL-R/PLASMALYTE-A 1000 IV ×2 (08:15→16:29)
[2024-05-19] MEDS: TYLENOL 1000 MG PO (08:36)
[2024-05-19 08:37] LABS: INR 1.04; PT 13.4 Sec (11.4-14.6)
--- NOTE | 2024-05-19 13:36 | W.PN.UPDATE ---
Update Note
Progress Note Update
R shoulder RCT s/p R Reverse TSA w/ Dr Mayes 05/19/24
- s/p R TKA, 2014, by Dr. Rivas
DVT prophylaxis - Warfarin w/ modified Lovenox bridge, b/l venous foot pumps
- Will restart Warfarin tonight w/ Lovenox 60 mg SC q12h beginning POD 1
Labile HTN � Losartan recently increased to 25 mg BID by Cardio - + parameters - monitor BP
PACs and PVCs w/ palps - monitor on tele
Pulm HTN and CHFpEF - reduce hourly IVF rate to prevent fluid overload
H/o orthostasis - monitor orthostatic VS q8h
- IVF running
- + Parameters to BP meds
Multiple DVTs/PE 2* antiphospholipid syndrome/factor V leiden � resume Coumadin tonight w/ Lovenox bridge starting tomorrow
- Has retained IVC filter
FADIA, resolved w/ weight loss - monitor O2
GERD and Hiatal hernia - add Protonix
Lumbar radiculopathy - consider Gabapentin or Lyrica
History of falls - on fall precautions
Fibromyalgia - monitor pain and adjust meds accordingly
HLD
Mild-mod valvular disease
Chronic venous insufficiency/edema
Chronic hoarseness
Vertigo
L1 compression fx
Multilevel DDD
Thyroid nodules
Hyperparathyroidism
Melanoma, status post multiple excisions
Acute blood loss anemia, 01/2024, s/p 2 units PRBCs
Loss of L eye 2* mechanical fall w/ resultant orbital fx 12/2023
Osteopenia
Lyme disease
Obesity, BMI 30; s/p sleeve gastrectomy 2008
Prediabetes, A1c 5.8
[2024-05-19] MEDS: MORPHINE SULFATE 1 MG IV ×2 (14:29→16:30)
[2024-05-19] MEDS: TYLENOL 650 MG PO ×3 (15:03→20:33)
[2024-05-19] MEDS: DILAUDID 0.25 MG IV (15:27)
--- NOTE | 2024-05-19 17:52 | PTCARENOTE ---
Pt arrived to 2S in bed. Full assessment completed. Telemetry applied. RUE NWB, maintained in sling. Pt with decreased sensation and movement to RUE, neurovascular assessment otherwise WDL. RUE primaseal C/D/I. IVF infusing per order. Bed locked and
in the lowest position, safety maintained. Oriented to room and call treviño.
[2024-05-19] MEDS: LASIX 20 MG PO (18:03)
[2024-05-19] MEDS: ANCEF 5 IV (18:04)
[2024-05-19] MEDS: VITAMIN D3 (cholecalciferol) 50 MCG PO (18:04)
[2024-05-19] MEDS: COUMADIN 5 MG PO (18:04)
[2024-05-19] MEDS: REVATIO 20 MG PO (18:24)
[2024-05-19] MEDS: VITAMIN B-12 500 MCG PO (20:34)
[2024-05-19] MEDS: DECADRON 4 MG PO (20:35)
[2024-05-19] MEDS: PRED FORTE 1% EYE DROPS 1 DROP BOTH EYES (20:35)
[2024-05-19] MEDS: BACTROBAN 2% OINTMENT 1 APPLIC NASAL (20:36)
[2024-05-19] MEDS: COZAAR 25 MG PO (21:37)
[2024-05-19] MEDS: CRESTOR 5 MG PO (21:37)
[2024-05-19] MEDS: ERYTHROMYCIN 0.5% OPHTHALMIC OINTMENT 1 APPLIC OPHTH (21:37)
[2024-05-20] MEDS: ROXICODONE 5 MG PO
[2024-05-20] MEDS: ANCEF 5 IV (02:36)
[2024-05-20 03:15] VITALS: BP 163/90
[2024-05-20] MEDS: TYLENOL 325 MG PO (04:03)
[2024-05-20 04:26] VITALS: BMI 30.6
--- NOTE | 2024-05-20 04:34 | DOWNTIME ---
There was a [employer] Client Craft Superintendent Downtime on 05/20/2024 from 0100 to 05/20/2024 at 0355. Downtime documentation of patient's care, including medication administrations, has been reconciled in the electronic record per guidelines. Refer to the
patient's paper chart under the miscellaneous tab to see printed paper medication records and downtime forms.
[2024-05-20] MEDS: ROXICODONE 10 MG PO ×3 (04:35→13:55)
[2024-05-20] MEDS: REVATIO PO (04:44)
[2024-05-20 07:06] LABS: INR 1.09
[2024-05-20 07:30] VITALS: BP 131/100; BP 155/90; BP 160/90; PULSE 83; PULSE 86; PULSE 94
[2024-05-20 08:11] VITALS: BP 131/100; BP 155/90; BP 160/90; PULSE 83; PULSE 86; PULSE 94
[2024-05-20] MEDS: VITAMIN D3 (cholecalciferol) 50 MCG PO (08:23)
[2024-05-20] MEDS: REVATIO 20 MG PO (08:24)
[2024-05-20] MEDS: BACTROBAN 2% OINTMENT 1 APPLIC NASAL (08:24)
[2024-05-20] MEDS: TYLENOL 650 MG PO ×2 (08:24)
[2024-05-20] MEDS: DECADRON 4 MG PO (08:24)
[2024-05-20] MEDS: LOVENOX 60 MG SC (08:24)
[2024-05-20] MEDS: PRED FORTE 1% EYE DROPS 1 DROP BOTH EYES (08:25)
[2024-05-20] MEDS: VITAMIN B-12 500 MCG PO (08:27)
[2024-05-20] MEDS: NEURONTIN 200 MG PO (09:45)
[2024-05-20 11:11] VITALS: BP 142/71
[2024-05-20 11:27] VITALS: BP 132/71
--- NOTE | 2024-05-20 12:08 | CM ---
Met with pt at bedside
Pt lives alone in a 1 fl cottage at [facility]; no steps to enter
Independent with ADL's, does own shopping, food prep, drives. Outside of home reports uses 'walking sticks' when ambulating
DME - rolling walker, single point cane, commode, toilet rails, walking stick
SNF - [facility] in past
HH - denies past hx
Has ride at discharge
PCP - Jaren Urbina
Pharm - [facility]
Pt reports she plans to stay with her son initially at discharge. Son works from home and would be available as needed
Plan - anticipate home no needs when medically ready
--- NOTE | 2024-05-20 12:11 | W.PN.ORTHO ---
Today's Communication / Plan
-
D/c today since clinically stable, did well w/ OT.
Assessment
.
Distal Motor Intact: Yes
Dressing:
Clean, dry and intact.
Assessment:
R shoulder RCT s/p R Reverse TSA w/ Dr Mayes 05/19/24
- s/p R TKA, 2014, by Dr. Rivas
DVT prophylaxis - Warfarin w/ modified Lovenox bridge, b/l venous foot pumps
- Restarted Warfarin night of POD 0 w/ Lovenox 60 mg SC q12h beginning POD 1
- INRs to be monitored by Coumadin clinic through . Pt has monitor at home. First INR upon d/c to be drawn 05/21
Labile HTN � Losartan recently increased to 25 mg BID by Cardio - + parameters - BPs initially elevated d/t pain but overall improved w/ adequate pain control
PACs and PVCs w/ palps - rhythm overall stable on tele
Pulm HTN and CHFpEF - reduced hourly IVF rate to prevent fluid overload
H/o orthostasis - orthostatic VS q8h stable
- s/p IVF
- Continue parameters to BP meds while on Oxycodone
Multiple DVTs/PE 2* antiphospholipid syndrome/factor V leiden � on Coumadin/Lovenox bridge
- Has retained IVC filter
FADIA, resolved w/ weight loss - O2 stable on RA
GERD and Hiatal hernia - added Protonix
Lumbar radiculopathy - consider Gabapentin or Lyrica
History of falls - on fall precautions
Fibromyalgia - pain improving w/ addition of Gabapentin, increase from 5 mg to 10 mg of Oxycodone prn
HLD
Mild-mod valvular disease
Chronic venous insufficiency/edema
Chronic hoarseness
Vertigo
L1 compression fx
Multilevel DDD
Thyroid nodules
Hyperparathyroidism
Melanoma, status post multiple excisions
Acute blood loss anemia, 01/2024, s/p 2 units PRBCs
Loss of L eye 2* mechanical fall w/ resultant orbital fx 12/2023
Osteopenia
Lyme disease
Obesity, BMI 30; s/p sleeve gastrectomy 2008
Prediabetes, A1c 5.8
Plan
.
Surgery / Date: R Reverse TSA w/ Dr Mayes 05/19/24
DVT Prophylaxis: Coumadin (w/ Lovenox bridging)
Activity:
Out of bed.
PT/OT
Discharge Plan: Home
Subjective
.
.:
Patient resting comfortably in bed.
R shoulder pain reportedly bothersome; however, appears comfortable.
Denies any new significant complaints.
Eager for potential d/c today.
Vital Signs and Labs
.
Vital Signs and Labs:
Lab Results
05/04/24 12:51
05/04/24 12:51
Temp Pulse Resp BP Pulse Ox
98.7 F 84 16 132/71 99
05/20/24 11:27 05/20/24 11:27 05/20/24 11:27 05/20/24 11:27 05/20/24 11:27
PT 14.0 Sec (11.4-14.6) 05/20/24 05:02
INR 1.09 05/20/24 05:02
Non-invasive Hgb result: 12.1
Physical Exam
-
HEENT: Visible past trauma around L eye. No pallor, cyanosis, or jaundice. Throat clear.
NECK: Supple. No JVD.
RESPIRATORY: Lungs clear to auscultation.
CVS: S1, S2 normal. RRR.�
ABDOMEN: Soft, non-tender. No distension. Obese.
EXTREMITIES: +RUE sling. Good center medical and lab director b/l. Able to wiggle fingers b/l. Strength equal, no calf pain with palpation/dorsiflexion. Calves soft.
DIRECTOR OF SUSTAINABILITY PROGRAMS: AOx3. No focal deficits. top cager grossly intact
--- NOTE | 2024-05-20 12:29 | W.DS.TRANS ---
DC Summary - [employer]
-
Discharge Instructions:
Discharge Diagnosis/Procedures R shoulder rotator cuff tear s/p R Reverse TSA w /
Dr Mayes 05/19/24
Diet 2 Gram Sodium
Activity As tolerated
Additional Activity Non-weightbearing right upper extremity
Driving Restrictions Not until seen by your Dr
Bathing Restrictions OK to Shower
Blood Work PT/INR , 05/21, AM w/ results to
Coumadin clinic for Warfarin dose adjustments
Wound Care Leave dressing on until seen by surgeon's office
for follow-up in 2 weeks.
Specialty Instructions Weigh Daily
Instructions:
Stand-Alone Forms: Total Shoulder Replacement D/C
Changes to Home Medications: Yes
Discharge Medications:
DC Medications w/original date entered in [facility]
cholecalciferol (vitamin D3) 25 mcg (1,000 unit) tablet 50 mcg PO DAILY Supplement 01/13/24
cyanocobalamin (vitamin B-12) 500 mcg tablet 500 mcg PO DAILY Supplement 01/13/24
prednisolone acetate 1 % eye drops,suspension (Pred Forte) 1 drp BOTH EYES BID Eye Condition 01/13/24
rosuvastatin 5 mg tablet 5 mg PO HS High Cholesterol 01/13/24
sildenafil (pulm.hypertension) 20 mg tablet 20 mg PO Q12H PULM. HYPERTENSION 01/13/24
erythromycin 5 mg/gram (0.5 %) eye ointment 1 applic ophthalmic (eye) HS Eye Condition 05/13/24
magnesium 250 mg tablet 250 mg PO DAILY Supplement 05/13/24
mupirocin 2 % topical ointment 1 applic topical BID 05/13/24
warfarin 10 mg tablet (Jantoven) 7 mg PO QPM Blood Clot Prevention/Tx 05/13/24
Saccharomyces boulardii 250 mg capsule (Florastor) 250 mg PO BID #14 caps 05/20/24
acetaminophen 325 mg tablet 650 mg (2 x 325 mg) PO Q4HWA #60 tabs 05/20/24
cefadroxil 500 mg capsule 500 mg PO BID #14 caps 05/20/24
dexamethasone 4 mg tablet 4 mg PO Q12 Anti-inflammatory #7 tabs 05/20/24
docusate sodium 100 mg capsule 100 mg PO BID #30 caps 05/20/24
enoxaparin 60 mg/0.6 mL subcutaneous syringe 60 mg (0.6 mL) SC Q12H #6 mL 05/20/24
famotidine 20 mg tablet (Pepcid) 20 mg PO DAILY #0 tabs 05/20/24
furosemide 20 mg tablet 20 mg PO TUFR #1 tab 05/20/24
gabapentin 100 mg capsule 200 mg (2 x 100 mg) PO TID neuropathic pain #30 caps 05/20/24
losartan 25 mg tablet 25 mg PO HS Blood Pressure #0 tabs 05/20/24
ondansetron HCl 4 mg tablet 4 mg PO Q6H PRN nausea and vomiting #30 tabs 05/20/24
oxycodone 5 mg tablet 5 - 10 mg (1 - 2 x 5 mg) PO Q6H PRN moderate-severe pain #30 tabs 05/20/24
sennosides 8.6 mg tablet (Senna Laxative) 17.2 mg (2 x 8.6 mg) PO BID #30 tabs 05/20/24
Home Medication Changes
Saccharomyces boulardii 250 mg capsule (Florastor) 250 mg PO BID #14 caps 05/20/24
acetaminophen 325 mg tablet 650 mg (2 x 325 mg) PO Q4HWA #60 tabs 05/20/24
cefadroxil 500 mg capsule 500 mg PO BID #14 caps 05/20/24
dexamethasone 4 mg tablet 4 mg PO Q12 Anti-inflammatory #7 tabs 05/20/24
docusate sodium 100 mg capsule 100 mg PO BID #30 caps 05/20/24
enoxaparin 60 mg/0.6 mL subcutaneous syringe 60 mg (0.6 mL) SC Q12H #6 mL 05/20/24
famotidine 20 mg tablet (Pepcid) 20 mg PO DAILY #0 tabs 05/20/24
gabapentin 100 mg capsule 200 mg (2 x 100 mg) PO TID neuropathic pain #30 caps 05/20/24
ondansetron HCl 4 mg tablet 4 mg PO Q6H PRN nausea and vomiting #30 tabs 05/20/24
oxycodone 5 mg tablet 5 - 10 mg (1 - 2 x 5 mg) PO Q6H PRN moderate-severe pain #30 tabs 05/20/24
sennosides 8.6 mg tablet (Senna Laxative) 17.2 mg (2 x 8.6 mg) PO BID #30 tabs 05/20/24
Pending Results: No
[2024-05-20] MEDS: TYLENOL PO ×2 (12:38→13:53)
== END 2024-05-20 14:46 | disposition home or self-care (01) | DRG 483 ==
LOC: 2 SOUTH 07:29
PROVIDERS: Physician Assistant; ADMITTING PHYSICIAN Specialist; FAMILY PHYSICIAN Family Medicine; REFERRING PHYSICIAN Internal Medicine Cardiovascular Disease
PROC: 0RRJ00Z Replacement of Right Shoulder Joint with Reverse Ball and Socket Synthetic Substitute, Open Approach (ICD-10-PCS; 2024-05-19)
PROC: 0RHJ04Z Insertion of Internal Fixation Device into Right Shoulder Joint, Open Approach (ICD-10-PCS; 2024-05-19)
PROC: 0LS30ZZ Reposition Right Upper Arm Tendon, Open Approach (ICD-10-PCS; 2024-05-19)
DX: M75.101 Unspecified rotator cuff tear or rupture of right shoulder, not specified as traumatic (principal); I26.99 Other pulmonary embolism without acute cor pulmonale; D68.61 Antiphospholipid syndrome; M12.9 Arthropathy, unspecified; I10 Essential (primary) hypertension; I49.1 Atrial premature depolarization; I49.3 Ventricular premature depolarization; Z91.81 History of falling; R26.2 Difficulty in walking, not elsewhere classified; M79.7 Fibromyalgia
CPT/HCPCS: 36415; 73020; 80053; 83036; 85027; 85610; 86850; 86900; 86901; 87070; 97110; 97167; 97535

== ENCOUNTER → 2024-08-14 07:47 | Outpatient (REF) | payer MEDICARE, SELFPAY | LOC: RAD 07:47 | PROVIDERS: ATTENDING PHYSICIAN Internal Medicine Endocrinology, Diabetes & Metabolism; FAMILY PHYSICIAN Family Medicine | DX: E83.52 Hypercalcemia (principal); E04.2 Nontoxic multinodular goiter | CPT/HCPCS: 76536 ==

== ENCOUNTER → 2024-12-09 09:08 | Outpatient (REF) | payer MEDICARE, SELFPAY | LOC: HWRAD 09:08 | PROVIDERS: ATTENDING PHYSICIAN Internal Medicine Cardiovascular Disease; FAMILY PHYSICIAN Family Medicine | DX: S80.12XA Contusion of left lower leg, initial encounter (principal); R22.42 Localized swelling, mass and lump, left lower limb | CPT/HCPCS: 76882 ==

== ENCOUNTER → 2024-12-10 11:59 | Outpatient (REF) | payer MEDICARE, SELFPAY | LOC: RAD 11:59 | PROVIDERS: ATTENDING PHYSICIAN Internal Medicine Endocrinology, Diabetes & Metabolism; FAMILY PHYSICIAN Family Medicine | DX: M81.0 Age-related osteoporosis without current pathological fracture (principal) | CPT/HCPCS: 77080 ==

== ENCOUNTER → 2024-12-31 14:21 | Outpatient (REF) | payer MEDICARE, SELFPAY | LOC: WDC 14:21 | PROVIDERS: ATTENDING PHYSICIAN Physician Assistant | DX: Z12.31 Encounter for screening mammogram for malignant neoplasm of breast (principal); Z12.39 Encounter for other screening for malignant neoplasm of breast | CPT/HCPCS: 77063; 77067 ==

== ENCOUNTER → 2025-03-25 07:32 | Outpatient (REF) | payer MEDICARE, SELFPAY ==
[2025-03-25 08:03] LABS: Hematocrit 40.2 % (37.0-47.0); Hemoglobin 13.1 g/dL (12.0-16.0); Mean Corp Hgb Conc. 32.6 g/dL (33.0-37.0); Mean Corpuscular Volume 88.5 fL (81.0-99.0); Nucleated Red Blood Cells % 0 %; Platelet Count 176 10^3/uL (130-400); Red Cell Dist. Width 13.8 % (11.5-14.5)
[2025-03-25 09:11] LABS: ALT (SGPT) 19 U/L (0-35); AST (SGOT) 20 U/L (14-36); Albumin 4.2 g/dl (3.5-5.0); Alkaline Phosphatase 65 U/L (38-126); Blood Urea Nitrogen 21 mg/dl (7-17); Calcium 9.7 mg/dl (8.4-10.2); Carbon Dioxide 31 mmol/L (22-30); Chloride 106 mmol/L (98-107); Glucose 96 mg/dl (70-99); HDL Cholesterol 83 mg/dl; LDL Cholesterol, Calculated 111 mg/dl; Potassium 4.6 mmol/L (3.5-5.1); Sodium 141 mmol/L (135-145); Total Protein 6.6 g/dl (6.3-8.2); Very Low Density Lipoprotein 14 mg/dl (0-30); eGFR > 60.00
[2025-03-25 09:38] LABS: TSH 4.94 uIU/ml (0.47-4.68)
== END ==
LOC: REG 07:32
PROVIDERS: ATTENDING PHYSICIAN Internal Medicine Endocrinology, Diabetes & Metabolism; FAMILY PHYSICIAN Family Medicine
DX: M79.2 Neuralgia and neuritis, unspecified (principal); I10 Essential (primary) hypertension; D66 Hereditary factor VIII deficiency; I50.32 Chronic diastolic (congestive) heart failure; M81.0 Age-related osteoporosis without current pathological fracture; E34.9 Endocrine disorder, unspecified; E83.52 Hypercalcemia; E55.9 Vitamin D deficiency, unspecified
CPT/HCPCS: 36415; 80053; 80061; 82330; 83970; 84439; 84443; 85025

== ENCOUNTER → 2025-04-08 14:47 | Outpatient (REF) | payer MEDICARE, SELFPAY | LOC: RAD 14:47 | PROVIDERS: ATTENDING PHYSICIAN Physician Assistant | DX: J22 Unspecified acute lower respiratory infection (principal) | CPT/HCPCS: 71046 ==

== ENCOUNTER → 2025-06-04 19:04 | Outpatient (REF) | payer MEDICARE, SELFPAY | LOC: PAVMRI 19:04 | PROVIDERS: ATTENDING PHYSICIAN Physician Assistant; FAMILY PHYSICIAN Family Medicine | DX: M54.16 Radiculopathy, lumbar region (principal) | CPT/HCPCS: 72148 ==

== ENCOUNTER → 2025-08-04 08:45 | Outpatient (REF) | payer MEDICARE, SELFPAY ==
[2025-08-04 10:28] LABS: ALT (SGPT) 23 U/L (0-35); AST (SGOT) 21 U/L (14-36); HDL Cholesterol 89 mg/dl; LDL Cholesterol, Calculated 105 mg/dl; Very Low Density Lipoprotein 15 mg/dl (0-30)
== END ==
LOC: REG 08:45
PROVIDERS: ATTENDING PHYSICIAN Internal Medicine Cardiovascular Disease; FAMILY PHYSICIAN Family Medicine
DX: E78.2 Mixed hyperlipidemia (principal)
CPT/HCPCS: 36415; 80061; 84450; 84460